=== PATIENT | male | born 1970 | race Caucasian/White ===

== ENCOUNTER → 2016-09-16 | Day surgery (SDC) | payer BC ==
[~2016-09-16] MED LIST: Bupivacaine 0.25% EPI 200,000* 30 ML SDV ONE; Bupivacaine 0.25% SDV* 30 ML ONE; Lidocain 1% EPI 1:100,000 * 30 ML MDV ONE; Sodium Bicarbonate 8.4% SYR* 10 ML SYRINGE ONE
[2016-09-16 15:46] VITALS: BP 120/63
--- NOTE | 2016-09-17 04:53 | OP ---
DATE OF OPERATION: 09/16/16 - [facility] DATE OF : 66 SURGEON: Lai Eng MD [employer] M[employer]INE OPERATOR: SAMPSON Herron ANESTHESIOLOGIST: None. ANESTHESIA: Local only with 1% lidocaine with epinephrine. PRE-OP DIAGNOSIS: Right wrist de Quervain's tenosynovitis. POST-OP DIAGNOSIS: Right wrist de Quervain's tenosynovitis. OPERATIVE PROCEDURE: Right wrist first dorsal compartment release (de Quervain' s release). INDICATIONS: Fermín is a 46-year-old male who has chronic right wrist de Quervain's disease. I had given him an injection. The pain has come back. We talked about risks and benefits and he elected to proceed with right wrist de Quervain's release. DESCRIPTION OF PROCEDURE: Fermín was seen in the preoperative holding area and the correct site and side were marked. I anesthetized the area with 1% lidocaine with epinephrine with just a couple of milliliters of bicarbonate in it. We then came back to the operating room. After about 20 to 30 minutes, the arm was prepped and draped in the usual fashion and a formal time-out was performed. I then went ahead and made a transverse 2-cm incision just a centimeter proximal to the radial styloid. Dissection was carried down bluntly to the extensor retinaculum over the first dorsal compartment. Full-thickness flaps were raised right off the retinaculum. I then used my 15 blade to longitudinally incise the retinaculum over its dorsal aspect over that first dorsal compartment. The tendons were visualized. I then completed the release proximally and distally with the tenotomy scissors. There was significant tenosynovitis around the tendons. This was excised with the tenotomy scissors. Ultimately, the release looked very nice. I checked for accessory compartments. I did not see one. At this point, I went ahead and irrigated the wound and the skin was closed with a 4-0 Monocryl subcuticular suture. Steri-Strips were applied, 4x4, sterile Webril, and an Kenneth wrap were applied. He was then taken to the recovery room in stable condition. [id number] #: [id number]
== END | disposition home or self-care (01) ==
LOC: OREAST 11:13
PROVIDERS: ATTEND Orthopaedic Surgery Hand Surgery
DX: M65.4 Radial styloid tenosynovitis [de Quervain] (principal); M18.11 Unilateral primary osteoarthritis of first carpometacarpal joint, right hand
CPT/HCPCS: 88304